=== PATIENT | male | born 1950 | race Caucasian/White ===

== ENCOUNTER 2024-01-06 21:43 | Emergency (ER) | payer MEDICARE ==
[2024-01-06] MEDS: Bacitracin Oint 1 GM U/D Packet TOP ONE (22:30)
[2024-01-06] MEDS: Lidocaine 1% 5 ML VIAL INJECT ONE (22:30)
[2024-01-06] MEDS: Diphtheria,Pertussis(Acell),Tetanus Vaccine 0.5 ML Syringe IM ONE (22:31)
== END 2024-01-06 22:39 | disposition home or self-care (01) ==
LOC: JP.ED 21:43
DX: S60.452A Superficial foreign body of right middle finger, initial encounter (principal); Z23 Encounter for immunization; I10 Essential (primary) hypertension; E03.9 Hypothyroidism, unspecified; Z79.899 Other long term (current) drug therapy; W45.8XXA Other foreign body or object entering through skin, initial encounter
CPT/HCPCS: 90471; 90715; 99283; 99283-25